=== PATIENT | female | born 1935 | race Caucasian/White ===

== ENCOUNTER 2020-12-23 03:45 | Emergency (ER) | payer MEDICARE, SELFPAY ==
--- NOTE | ~2020-12-23 | XR_ITS ---
EXAMINATION: CHEST 1 VIEW CLINICAL INFORMATION: Chest pain. COMPARISON: 01/23/2018. TECHNIQUE: An AP view of the chest is provided. FINDINGS: The cardiac silhouette is stable. Intact midline sternal wires are present. The mediastinal and hilar contours are unremarkable. There are neither pleural effusions nor pneumothoraces. There are no consolidations. The osseous structures are stable. XR/XR chest 1V IMPRESSION: No evidence for acute disease.
--- NOTE | 2020-12-23 03:55 | ECG_ITS ---
Test Reason : CP Blood Pressure : / mmHG Vent. Rate : 087 BPM Atrial Rate : 083 BPM P-R Int : 000 ms QRS Dur : 102 ms QT Int : 376 ms P-R-T Axes : 000 -01 034 degrees QTc Int : 452 ms Atrial fibrillation with premature ventricular or aberrantly conducted complexes Low voltage QRS Cannot rule out Inferior infarct , age undetermined Abnormal ECG When compared with ECG of 23-JAN-2018 22:05, Minimal criteria for Inferior infarct are now Present Referred By: Generic ED Physician Electronically Signed By:ERICA MENDES
[2020-12-23 03:57] VITALS: PULSE 86; RESP 16; O2SAT 96; BMI 35.7
--- NOTE | 2020-12-23 04:00 | PC.NURSE ---
PT TO ED VIA AMBULANCE WITH C/O POSSIBLE ANXIETY ATTACK TONIGHT OR POSSIBLE CP. PT TO ED VIA AMBULANCE FROM HOME. PT CHG INTO GOWN AND AWAITING MD'S KIKE. EKG OBTAINED TO . PT HAS #20G TO LAC. LABS DRAWN TO LAB. PT ON MONITOR WITH HR 83. PT IS A POOR HISTORIAN. 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 PT AWAITING FURTHER ORDERS.
[2020-12-23 04:17] LABS: Basophils Percent Auto 0.5 % (0-2); Eosinophils Absolute Auto 0.5 X10*3/uL (0.0-0.4); Eosinophils Percent Auto 5.7 % (0-4); Hematocrit 41.9 % (37-47); Hemoglobin 13.4 g/dl (12.0-16.0); Imm Gran Abs Auto 0.03 X10*3/uL (0.00-0.03); Imm Gran Pct Auto 0.4 % (0.0-0.4); Lymphocytes Absolute Auto 1.5 X10*3/uL (1.2-4.9); Lymphocytes Percent Auto 18.4 % (20-40); MANUAL DIFF FLAG NO; Mean Corpuscular Hemoglobin 30.5 pg (27.0-33.0); Mean Corpuscular Volume 95.2 fL (80-98); Mean Platelet Volume 9.8 fL (9.4-12.3); Monocytes Absolute Auto 0.7 X10*3/uL (0.1-1.2); Monocytes Percent Auto 8.8 % (2-11); Neutrophils Absolute Auto 5.3 X10*3/uL (2.0-8.3); Neutrophils Percent Auto 66.2 % (45-73); Platelet Count 295 X10*3/uL (160-400); Red Cell Distribution Width 14.6 % (11.0-16.0); White Blood Count 8.1 X10*3/uL (4.8-10.8)
[2020-12-23 04:40] LABS: Anion Gap 13 (12-20); Blood Urea Nitrogen 38 mg/dL (9-16); Calcium 8.5 mg/dL (8.4-10.2); Carbon Dioxide 32 mmol/L (22-29); Chloride 99 mmol/L (96-108); Creatinine Clr Calc Pharmacy 28.6; Estimated Glomerular Filt Rate 30; Glucose Random 189 mg/dL (60-115); Potassium 3.5 mmol/L (3.3-5.1); Sodium 140 mmol/L (135-145)
[2020-12-23 04:46] LABS: Troponin-I High Sensitivity 6.1 ng/L (<3.5-17.0)
--- NOTE | 2020-12-23 05:00 | PC.NURSE ---
PT STRAIGHT CATH AT THIS TIME FOR URINE SAMPLE TO LAB.
--- NOTE | 2020-12-23 05:04 | ED.GENADULT ---
HPI - General Adult General Chief complaint: General Medical Stated complaint: Chest pain Time Seen by Provider: 12/23/20 04:52 Source: patient and EMS Mode of arrival: EMS Limitations: altered mental status History of Present Illness HPI narrative: Patient come to the emergency room via ambulance. According to the patient's , patient woke up in a panic state according to EMS. Patient told the that she was having chest pain, the gave her nitroglycerin sublingual and a baby aspirin. When EMS arrived, the patient denied chest pain. At this time, patient states she feels fine, no chest pain, no shortness of breath. Patient is poor historian. Patient states she is fine and has no Related Data Previous Rx's Medication Instructions Recorded levofloxacin 500 mg PO DAILY #6 tab 12/23/20 Allergies Allergy/AdvReac Type Severity Reaction Status Date / Time fluoxetine [From PROZAC] Allergy Unknown UNKNOWN Unverified 07/31/20 19:06 gabapentin [GABAPENTIN] Allergy Unknown UNKNOWN Unverified 07/31/20 19:06 montelukast [From SINGULAIR] Allergy Unknown UNKNOWN Unverified 07/31/20 19:06 penicillin V Allergy Unknown Verified 02/14/18 00:00 Penicillins [PENICILLINS] Allergy Unknown UNKNOWN Unverified 07/31/20 19:06 prazosin [PRAZOSIN] Allergy Unknown UNKNOWN Unverified 07/31/20 19:06 sertraline Allergy Unknown Verified 02/14/18 00:00 tramadol [TRAMADOL] Allergy Unknown UNKNOWN Unverified 07/31/20 19:06 trazodone [TRAZODONE] Allergy Unknown UNKNOWN Unverified 07/31/20 19:06 verapamil [VERAPAMIL] Allergy Unknown UNKNOWN Unverified 07/31/20 19:06 zolpidem [From AMBIEN] Allergy Unknown UNKNOWN Unverified 07/31/20 19:06 Review of Systems Review of Systems: Constitutional : Denies fever or chills ENT/Mouth : No Hearing loss, No Ear Pain, No Nasal Congestion, No Sinus Pain, No Hoarseness, No sore throat, No Rhinorrhea, No Swallowing Difficulty Eyes: No Eye Pain, No Swelling, No Redness, No Foreign Body, No Discharge, No Vision Changes Cardiovascular : No Chest Pain, No SOB, No Dyspnea on Exertion, No Orthopnea, No Edema, No Palpitations Respiratory : No Cough, No Sputum, No Wheezing, No Smoke Exposure, No Dyspnea Gastrointestinal : No Nausea, No Vomiting, No Diarrhea, No Constipation, No abdominal Pain, No Hematochezia, No Melena Genitourinary : no irregular bleeding, No Dysuria, No Urinary Frequency, No Hematuria, No Urinary Incontinence, No Urgency, No Flank Pain, No Urinary Flow Changes, No Hesitancy, patient requesting to be straight cath Musculoskeletal : No joint pain, No Myalgias, No Joint Swelling Skin : No Skin Lesions, No rash Neuro : No Weakness, No Numbness, No Paresthesias, No Loss of Consciousness, No Dizziness, No Headache Psych : No Anxiety/Panic, No Depression, No SI/HI/AH/VH, No Social Issues, Heme/Lymph: No Bruising, No Bleeding,No Lymphadenopathy Endocrine : No Polyuria, No Polydipsia, No Temperature Intolerance [facility] Past Medical History Medical History Diabetes mellitus type 1 Hypertension Surgical History H/O coronary artery bypass surgery Social History Social History Advance Directives: No Advance Directives Information Provided: No Physical Exam Vital Signs: Vital Signs: Last Vital Signs Pulse 82 12/23/20 05:20 Resp 16 12/23/20 05:20 BP 114/63 12/23/20 05:20 Pulse Ox 96 12/23/20 05:20 Body Mass Index 35.7 Appearance: Alert. Oriented X1. No acute distress. Eyes: Pupils equal, round and reactive to light. ENT: Pharynx normal. Neck: Normal inspection. Neck supple. No lymph nodes noted. No crepitus CVS: Normal heart rate and rhythm. Pulses normal. Normal S1 and S2 Respiratory: No respiratory distress. Breath sounds normal. No Wheezing. No rales Abdomen: Soft and nontender. No rigidity. No distention. good BS x4 Skin: Skin warm and dry. Normal skin color. Normal skin turgor. Extremities: No lower extremity edema. No lower extremity edema. No Lacerations. No Rash Neuro: Cranial nerves 2-12 grossly intact, no focal deficits, no slurred speech Course Course Course Narrative: Patient remains asymptomatic. Patient does have a mild UTI, she was given IV ceftriaxone. Patient no longer having chest pain, 1st troponin was slightly elevated, 2nd troponin to be done at 07:15 along with a repeat BMP. Patient's creatinine slightly elevated, unclear if this is new versus old. Patient received 1 L of normal saline. Sign-out given to Dr. Oscar. Medical Decision Making Lab Data Result diagrams: 12/23/20 04:11 12/23/20 04:11 Labs: Lab Results 12/23/20 12/23/20 12/23/20 Range/Units 04:11 04:11 04:11 WBC 8.1 (4.8-10.8) X10*3/uL RBC 4.40 (4.20-5.50) X10*6/uL Hgb 13.4 (12.0-16.0) g/dl Hct 41.9 (37-47) % MCV 95.2 (80-98) fL MCH 30.5 (27.0-33.0) pg MCHC 32.0 (31.0-35.0) g/dl RDW 14.6 (11.0-16.0) % Plt Count 295 (160-400) X10*3/uL MPV 9.8 (9.4-12.3) fL Immature Gran % (Auto) 0.4 (0.0-0.4) % Neut % (Auto) 66.2 (45-73) % Lymph % (Auto) 18.4 L (20-40) % [place] % (Auto) 8.8 (2-11) % Eos % (Auto) 5.7 H (0-4) % Baso % (Auto) 0.5 (0-2) % Lymph # (Auto) 1.5 (1.2-4.9) X10*3/uL [place] # (Auto) 0.7 (0.1-1.2) X10*3/uL Eos # (Auto) 0.5 H (0.0-0.4) X10*3/uL Baso # (Auto) 0.0 (0.0-0.2) X10*3/uL Abs Immat Gran (auto) 0.03 (0.00-0.03) X10*3/uL Absolute Neuts (auto) 5.3 (2.0-8.3) X10*3/uL Absolute Nucleated RBC 0.000 (0.0-0.012) X10*3/uL Nucleated RBC % (auto) 0.0 (0.0-0.2) /100WBC Hold Blue Top SEE NOTE Sodium 140 (135-145) mmol/L Potassium 3.5 (3.3-5.1) mmol/L Chloride 99 (96-108) mmol/L Carbon Dioxide 32 H (22-29) mmol/L Anion Gap 13 (12-20) BUN 38 H (9-16) mg/dL Creatinine 1.63 H (0.5-1.4) mg/dL Estim Creat Clear Calc 28.6 Estimated GFR 30 Random Glucose 189 H (60-115) mg/dL Calcium 8.5 (8.4-10.2) mg/dL Troponin I High Sens (<3.5-17.0) ng/L Urine Color Urine Appearance Urine pH (5.0-8.0) Ur Specific [place] (1.005-1.025) Urine Protein (NEG-TRACE) MG/DL Urine Glucose (UA) (NEG) MG/DL Urine Ketones (NEG) MG/DL Urine Blood (NEG) Urine Nitrite (NEG) Ur Leukocyte Esterase (NEG) Urine RBC (0) /HPF Urine WBC (0-4) /HPF Urine WBC Clumps Ur Squamous Epith Cells /LPF Triple Phos Crystals /LPF Urine Bacteria /LPF 12/23/20 12/23/20 Range/Units 04:11 05:12 WBC (4.8-10.8) X10*3/uL RBC (4.20-5.50) X10*6/uL Hgb (12.0-16.0) g/dl Hct (37-47) % MCV (80-98) fL MCH (27.0-33.0) pg MCHC (31.0-35.0) g/dl RDW (11.0-16.0) % Plt Count (160-400) X10*3/uL MPV (9.4-12.3) fL Immature Gran % (Auto) (0.0-0.4) % Neut % (Auto) (45-73) % Lymph % (Auto) (20-40) % [place] % (Auto) (2-11) % Eos % (Auto) (0-4) % Baso % (Auto) (0-2) % Lymph # (Auto) (1.2-4.9) X10*3/uL [place] # (Auto) (0.1-1.2) X10*3/uL Eos # (Auto) (0.0-0.4) X10*3/uL Baso # (Auto) (0.0-0.2) X10*3/uL Abs Immat Gran (auto) (0.00-0.03) X10*3/uL Absolute Neuts (auto) (2.0-8.3) X10*3/uL Absolute Nucleated RBC (0.0-0.012) X10*3/uL Nucleated RBC % (auto) (0.0-0.2) /100WBC Hold Blue Top Sodium (135-145) mmol/L Potassium (3.3-5.1) mmol/L Chloride (96-108) mmol/L Carbon Dioxide (22-29) mmol/L Anion Gap (12-20) BUN (9-16) mg/dL Creatinine (0.5-1.4) mg/dL Estim Creat Clear Calc Estimated GFR Random Glucose (60-115) mg/dL Calcium (8.4-10.2) mg/dL Troponin I High Sens 6.1 (<3.5-17.0) ng/L Urine Color YELLOW Urine Appearance HAZY Urine pH 8.0 (5.0-8.0) Ur Specific [place] 1.015 (1.005-1.025) Urine Protein NEG (NEG-TRACE) MG/DL Urine Glucose (UA) NEG (NEG) MG/DL Urine Ketones NEG (NEG) MG/DL Urine Blood NEG (NEG) Urine Nitrite NEG (NEG) Ur Leukocyte Esterase TRACE H (NEG) Urine RBC 0 (0) /HPF Urine WBC 5-9 H (0-4) /HPF Urine WBC Clumps NOTED Ur Squamous Epith Cells TRACE /LPF Triple Phos Crystals TRACE /LPF Urine Bacteria 3+ /LPF Imaging Data Chest x-ray: Radiologist's impression: FINDINGS: The cardiac silhouette is stable. Intact midline sternal wires are present. The mediastinal and hilar contours are unremarkable. There are neither pleural effusions nor pneumothoraces. There are no consolidations. The osseous structures are stable. XR/XR chest 1V IMPRESSION: No evidence for acute disease. ECG Data Attestation: I personally reviewed and interpreted this ECG as follows: (Atrial fibrillation, heart rate 87, no ST segment depressions or elevations, nonspecific T-wave inversion in the 1 through V3) Discharge Plan Discharge Clinical Impression: Atypical chest pain, Acute UTI Patient Disposition: Home, Self-Care Instructions: Chest Pain (ED), Urinary Tract Infection in Older Adults (ED) Additional Instructions: Please follow-up with your primary care physician tomorrow. If you have any worsening or new symptoms, please return to the emergency room or call 911 Prescriptions: New levofloxacin 500 mg tablet 500 mg PO DAILY Qty: 6 RF: 0
[2020-12-23 05:19] LABS: Appearance Urine HAZY; Color Urine YELLOW; Glucose Urine UA NEG (NEG); Leukocyte Esterase Urine TRACE (NEG); Nitrite Urine NEG (NEG); Specific Gravity - Urine 1.015 (1.005-1.025); UACC Culture Trigger YES; Urine Blood NEG (NEG); Urine Ketones NEG (NEG); Urine Protein NEG (NEG-TRACE)
[2020-12-23 05:20] VITALS: BP 114/63; PULSE 82; RESP 16; O2SAT 96
[2020-12-23 05:30] LABS: Bacteria Urine 3+ /LPF; RBC Urine 0 /HPF (0); Squamous Epithelial Cell Urine TRACE /LPF
[2020-12-23 05:31] LABS: Triple Phosphate Crystal Urine TRACE /LPF; WBC Clumps Urine NOTED
--- NOTE | 2020-12-23 06:43 | PC.NURSE ---
PT SLEEPING, WAKES TO VERBAL STIMULI, RESPIRATIONS EASY, N/L. SKIN W/D. LAB IN ROOM DRAWING FOR AM LABS WILL CONTINUE TO MONITOR PT.
[2020-12-23] MEDS: 0.9 % Sodium Chloride 1,000 ML 999 ML IVCONT (08:08)
[2020-12-23] MEDS: levoFLOXacin/D5W 500 MG/100 ML PIGGYBACK 100 MG IV (08:09)
[2020-12-23 08:38] LABS: Troponin-I High Sensitivity 6.3 ng/L (<3.5-17.0)
[2020-12-23 09:07] LABS: Anion Gap 11 (12-20); Blood Urea Nitrogen 36 mg/dL (9-16); Calcium 8.1 mg/dL (8.4-10.2); Carbon Dioxide 32 mmol/L (22-29); Chloride 104 mmol/L (96-108); Creatinine Clr Calc Pharmacy 29.5; Estimated Glomerular Filt Rate 31; Glucose Random 99 mg/dL (60-115); Potassium 3.8 mmol/L (3.3-5.1); Sodium 143 mmol/L (135-145)
== END 2020-12-23 11:23 | disposition home or self-care (01) ==
PROVIDERS: Emergency Medicine; Emergency Provider Emergency Medicine Emergency Medical Services
DX: R07.89 Other chest pain (principal); N39.0 Urinary tract infection, site not specified; Z79.899 Other long term (current) drug therapy
CPT/HCPCS: 36415; 71045; 80048; 81001; 81003; 84484; 85025; 87086; 87088; 93005; 96361; 96365; 99283; 99284; J1956

== ENCOUNTER 2020-12-24 15:18 | Outpatient (REF) | payer MEDICARE, SELFPAY ==
[2020-12-24 16:06] LABS: Troponin-I High Sensitivity 7.3 ng/L (<3.5-17.0)
== END 2020-12-24 15:19 | disposition home or self-care (01) ==
LOC: HO.LNP 15:18
PROVIDERS: Visit Provider Internal Medicine
DX: I50.20 Unspecified systolic (congestive) heart failure (principal)
CPT/HCPCS: 82550; 84484